=== PATIENT | female | born 1965 | race Asian ===

== ENCOUNTER 2018-04-05 06:24 | Day surgery (SDC) | payer OTHER ==
[~2018-04-05] VITALS: Ht 165.1 cm; Wt 49.9 kg
[2018-04-05 07:00] VITALS: BP 122/87
[2018-04-05 09:18] VITALS: BP 104/70
== END 2018-04-05 09:35 | disposition home or self-care (01) ==
LOC: GI 06:24 → OR 07:30 → GI 07:30
PROVIDERS: Internal Medicine Gastroenterology
PROC: 0DB68ZX Excision of Stomach, Via Natural or Artificial Opening Endoscopic, Diagnostic (ICD-10-PCS; principal; 2018-04-05 07:30)
DX: K20.9 Esophagitis, unspecified (principal); Z80.0 Family history of malignant neoplasm of digestive organs
CPT/HCPCS: 43235; J1200; J1610; J2250; J2310; J3010; J3490

== ENCOUNTER 2020-09-16 06:22 | Observation (INO) | payer OTHER ==
--- NOTE | 2020-09-15 14:10 | NUR ---
LABS SENT TO [facility] FOR REVIEW. LABS OKAY FOR SURGERY ON 09-16-20.
[~2020-09-16] VITALS: Ht 162.6 cm; Wt 58.5 kg
[2020-09-16 06:42] VITALS: BP 140/83
[2020-09-16 15:44] LABS: BASOPHIL % 0.4 % (0-2); PLATELET COUNT 178 x10^3mcL (130-400); RED CELL DISTRIBUTION WIDTH 12.6 % (11.5-14.5)
[2020-09-16 15:51] LABS: CALCIUM 8.6 mg/dL (8.5-10.1); CARBON DIOXIDE 23.7 mmol/L (21-32); CHLORIDE SERUM 107 mmol/L (98-107); CREATININE SERUM 0.7 mg/dL (0.6-1.0); GFR1 > 60 mL/min; GLUCOSE SERUM 162 mg/dL (74-106); POTASSIUM SERUM 3.9 mmol/L (3.5-5.1); SODIUM SERUM 142 mmol/L (136-145)
[2020-09-16 15:58] LABS: ALBUMIN 3.4 g/dL (3.4-5.0); ALKALINE PHOSPHATASE 56 U/L (46-116); ALT/SGPT 22 U/L (14-59); AST/SGOT 22 U/L (15-37); BILIRUBIN TOTAL 0.45 mg/dL (0.20-1.00)
[2020-09-16 15:59] LABS: TOTAL PROTEIN, SERUM 6.1 g/dL (6.4-8.2)
[2020-09-16 16:49] VITALS: BP 104/68
--- NOTE | 2020-09-16 17:55 | NUR ---
1650 RECEIVED PATIENT VIA GURNEY FROM OUTPATIENT SURGERY. PATIENT AWAKE, ALERT AND ORIENTED. CALL LIGHT WITHIN REACH. MRSA SWAB DONE PER PROTOCOL. HASSAN WITH LEG BAG WITH CLEAR YELLOW URINE. PATIENT HAS SCARLET PAD WITH SMALL AMOUNT BLOODY DRAINAGE. IV FLUIDS RUNNING. NO COMPLAINTS OF LIGHT HEADEDNESS OR DIZZINESS. PATIENT ABLE TO TURN AND REPOSITION SELF. PENDING REPEAT CBC AT 1900. VITALS STABLE. STARTED ON CLEAR LIQUIDS, DECREASED APPETITE. OXYGEN REMOVED, PATIENT 98% ON ROOM AIR.
--- NOTE | 2020-09-16 20:00 | NUR ---
PATIENT RECEIVED AWAKE, ALERT, ORIENTED X4 IN BED. RESPIRATION EVEN AND UNLABORED, ON ROOM AIR. ONGOING 0.9% NS AT 100 CC/HR INFUSING WELL AT THE R HAND. SALINE LOCK TO L HAND PATENT AND INTACT. DENIES GI DISCOMFORT, LBM 12/. HASSAN CATHETER TO LEG BAG WITH YELLOW COLORED URINE. GENERALIZED WEAKNESS. SKIN DRY AND INTACT. ON TELE #8. DENIES PAIN AT THIS TIME. PLACED CALL LIGHT WITHIN REACH. WILL CONTINUE TO MONITOR.
[2020-09-16 20:19] LABS: BASOPHIL % 0.1 % (0-2); PLATELET COUNT 147 x10^3mcL (130-400); RED CELL DISTRIBUTION WIDTH 12.4 % (11.5-14.5)
[2020-09-16 20:57] VITALS: BP 100/63
[2020-09-17 05:49] VITALS: BP 95/57
--- NOTE | 2020-09-17 06:20 | NUR ---
PATIENT RESTING IN BED, RESPIRATION EVEN AND UNLABORED, ON ROOM AIR. IV SITE NO SIGN OF INFILTRATION. DENIES DISCOMFORT/PAIN AT THIS TIME. MINIMAL VAGINAL BLEEDING NOTED. HASSAN CATHETER PATENT AND INTACT. ASSISTED WITH NEEDS. SAFETY OBSERVED. PLACED BED IN THE LOWEST POSITION. PLACED CALL LIGHT WITHIN REACH AT ALL TIMES.
[2020-09-17 06:53] LABS: BASOPHIL % 0.3 % (0-2); RED CELL DISTRIBUTION WIDTH 12.6 % (11.5-14.5)
[2020-09-17 07:00] LABS: PLATELET COUNT 123 x10^3mcL (130-400)
[2020-09-17 07:29] LABS: CALCIUM 8.1 mg/dL (8.5-10.1); CARBON DIOXIDE 25.6 mmol/L (21-32); CHLORIDE SERUM 112 mmol/L (98-107); CREATININE SERUM 0.6 mg/dL (0.6-1.0); GFR1 > 60 mL/min; GLUCOSE SERUM 92 mg/dL (74-106); MAGNESIUM 1.9 mg/dL (1.8-2.4); PHOSPHOROUS 2.3 mg/dL (2.5-4.9); POTASSIUM SERUM 3.4 mmol/L (3.5-5.1); SODIUM SERUM 145 mmol/L (136-145)
[2020-09-17 08:49] VITALS: BP 93/58
[2020-09-17 12:18] VITALS: BP 109/72
[2020-09-17 12:19] LABS: PLATELET COUNT 147 x10^3mcL (130-400); RED CELL DISTRIBUTION WIDTH 11.9 % (11.5-14.5)
[2020-09-17 12:25] LABS: BASOPHIL % 2.9 % (0-2)
--- NOTE | 2020-09-17 12:28 | NUR ---
HASSAN CATHETER DISCONTINUED AT 1000, TIP INTACT. NOTED PATEINT HAD ONE PAD MODERATELY SOAKED WITH SANGUINEOUS BLOOD. PATIENT COMPLAINED OF BEING DIZZY. PATIENT EDUCATED NOT TP GET OUT OF BED WITHOUT SUPERVISION AND ASSIST, PATIENT VERBALIZED UNDERSTANDING. PATIENT NOTED TO HAVE X4 URINATION INTHE BATHROOM WITH MODERATE BLOOD AND BLOOD-CLOTS NOTED. ANCEF ADMINISTERED ORDERED. PATIENT RESTING QUIETLY IN BED. CALL LIGHT WITHIN EASY REACH. BEDLOCK ACTIVATED. CHARGE NURSE MADE AWARE. WILL CONTINUE TO MONITOR PATIENT.
[2020-09-17 16:04] VITALS: BP 111/74
--- NOTE | 2020-09-17 18:24 | NUR ---
PATIENT TOLERATING REGULAR DIET. IVF ONGOING. DECREASED BLOOD CLOTS DURING URINATION. PENDING BLOOD TRANSFUSION. HG 9.4. WILL CONTINUE TO MONITOR.
--- NOTE | 2020-09-17 18:46 | NUR ---
PATIENT'S H/H IS 9.4, PATIENT DENIES DIZZINESS OR DISCOMFORT. NO BLOOD ON THE PAD AFTER DR. WRIGHT INSERTED SURGICEL. DR. WRIGHT SPOKE TO PATIENT OVER THE PHONE, PATIENT REQUESTED TO GO HOME TODAY, ORDER RECEVIED TO D/C PATIENT HOME TODAY.
--- NOTE | 2020-09-17 18:50 | NUR ---
PATIENT DECLINED BLOOD TRANSFUSION AND SPOKE TO DR. LUCAS WRIGHT. RECEIVED NEW ORDER NOT TO TRANSFUSE PRBC, AND ORDER TO DISCHARGE PATIENT. CHARGE NURSE MADE AWARE. ENDORSED TO PM NURSE.
--- NOTE | 2020-09-17 19:59 | NUR ---
DC IV SITES X2 ANGIO CATH PATENT , TELE DCD WELL.
--- NOTE | 2020-09-17 20:23 | NUR ---
DISCHARGED PT HOME SELF CARE, NO ACUTE DISTRESS NOTED, DISCHARGE INSRTUCTION GIVEN PT VERBALIZED UNDERSTANDING.
== END 2020-09-17 20:20 | disposition home or self-care (01) ==
LOC: MU 06:22 → DU 06:22 → MU 07:30 → DU 16:35
PROVIDERS: Internal Medicine; ADMIT Obstetrics & Gynecology; ATTEND Obstetrics & Gynecology
DX: N81.6 Rectocele (principal); N81.10 Cystocele, unspecified
CPT/HCPCS: 85378; G0378; J0690; J1170; J3010; J7030